=== PATIENT | male | born 1960 | race Caucasian/White ===

== ENCOUNTER 2017-11-07 06:20 | Day surgery (SDC) | payer OTHER ==
[~2017-11-07 06:20] MED LIST: Lactated Ringers 1,000 ML IV SCH; Sodium Chloride 0.9% 10 ML Syringe FLUSH PRN; Sodium Chloride 0.9% 2.5 ML Syringe FLUSH PRN; ceFAZolin 2 GM in Premix Bag 1 BAG IV ONE
[2017-11-07] MEDS ORDERED: Propofol 200 MG/20 ML SDV ONE (07:16)
[2017-11-07] MEDS ORDERED: fentaNYL 100 MCG/2 ML SDV ONE (07:16)
[2017-11-07] MEDS ORDERED: Midazolam 1 MG/ML 2 ML SDV ONE ×2 (07:16→07:57)
[2017-11-07] MEDS ORDERED: Lidocaine 2% 5 ML SDV ONE (07:18)
--- NOTE | 2017-11-07 07:19 | PCM.PREANE ---
Preanesthetic Assessment - Anesthesia/Transfusion/Family Hx Anesthesia History: Prior Anesthesia Without Reaction Family History of Anesthesia Reaction: No Transfusion History: No Prior Transfusion(s) Intubation History: Unknown - Review of Systems General: No Symptoms Pulmonary: No Symptoms Cardiovascular: No Symptoms Gastrointestinal: No Symptoms Neurological: No Symptoms Other: Reports: None - Physical Assessment O2 Sat by Pulse Oximetry: 96 Respiratory Rate: 16 Vital Signs: Last Vital Signs Temp 36.1 C 11/07/17 06:32 Pulse 60 11/07/17 06:32 Resp 16 11/07/17 06:32 BP 138/68 11/07/17 06:32 Pulse Ox 96 11/07/17 06:32 Height: 1.73 m Weight: 83.915 kg ASA Class: 2 Mental Status: Alert & Oriented x3 Airway Class: Mallampati = 2 Dentition: Reports: Normal Dentition Thyro-Mental Finger Breadths: 3 Mouth Opening Finger Breadths: 2 ROM/Head Extension: Full Lungs: Clear to Auscultation, Normal Respiratory Effort Cardiovascular: Regular Rate, Regular Rhythm - Allergies Allergies/Adverse Reactions: Allergies Allergy/AdvReac Type Severity Reaction Status Date / Time No Known Allergies Allergy Verified 06/15/14 15:14 - Blood Blood Available: No - Anesthesia Plan Pre-Op Medication Ordered: None - Acknowledgements Anesthesia Type Planned: MAC Pt an Appropriate Candidate for the Planned Anesthesia: Yes Alternatives and Risks of Anesthesia Discussed w Pt/Guardian: Yes Pt/Guardian Understands and Agrees with Anesthesia Plan: Yes PreAnesthesia Questionnaire HEENT History: Reports: Allergic Rhinitis Cardiovascular History: Reports: Hypertension Respiratory History: Reports: None Gastrointestinal History: Reports: GERD Genitourinary History: Reports: None Musculoskeletal History: Reports: Osteoarthritis Neurological History: Reports: Concussion Psychiatric History: Reports: None Hematologic History: Reports: None Immunologic History: Reports: None Oncologic (Cancer) History: Reports: None Dermatologic History: Reports: None - Past Surgical History Head Surgeries/Procedures: Reports: None HEENT Surgical History: Reports: LASIK, Naso-Sinus Surgery GI Surgical History: Reports: Colonoscopy Musculoskeletal Surgical History: Reports: Hip Replacement, Shoulder Surgery Other Musculoskeletal Surgeries/Procedures:: sudhakar hip replacement, left rotator cuff repair with bicep tendon repair - SUBSTANCE USE Smoking Status *Q: Never Smoker Recreational Drug Use History: No - HOME MEDS Home Medications: Home Meds Aspirin [[place] Aspirin] 81 mg PO DAILY 09/19/16 [History] Cetirizine [ZyrTEC] 10 mg PO DAILY PRN 09/19/16 [History] Famotidine [Pepcid AC] 20 mg PO DAILY PRN 09/19/16 [History] Gluc 2KCl/Chondr/Machelle Hy/Hy Ac [Glucosamine & Chondroitin Cap] 1 tab PO DAILY [History] Losartan Potassium 50 mg PO DAILY 11/05/17 [History] - CURRENT (IN HOUSE) MEDS Current Meds: Current Medications Lactated Ringer's (Ringers, Lactated) 1,000 mls @ 125 mls/hr IV ASDIRECTED DEAN Last Admin: 11/07/17 06:39 Dose: 125 mls/hr Sodium Chloride (Saline Flush) 10 ml FLUSH ASDIRECTED PRN PRN Reason: Keep Vein Open Sodium Chloride (Saline Flush) 2.5 ml FLUSH ASDIRECTED PRN PRN Reason: Keep Vein Open Discontinued Medications Cefazolin Sodium/Dextrose 2 gm (/ Premix) 50 mls @ 100 mls/hr IV ONETIME ONE Stop: 11/05/17 14:29
[2017-11-07] MEDS ORDERED: fentaNYL 100 MCG/2 ML SDV IVPUSH PRN (07:34)
[2017-11-07] MEDS ORDERED: ceFAZolin 1 GM Vial ONE (07:38)
[2017-11-07] MEDS ORDERED: Sodium Chloride 0.9% 20 ML ONE (07:40)
[2017-11-07] MEDS ORDERED: Lidocaine 1% with EPINEPHrine 1:100,000 20 ML MDV ONE (07:44)
[2017-11-07] MEDS ORDERED: Bupivacaine 0.5% 10 ML SDV ONE (07:44)
--- NOTE | 2017-11-07 08:36 | PCM.OPNOTE ---
- General Post-Op/Procedure Note Date of Surgery/Procedure: 11/07/17 Operative Procedure(s): Excision upper back sebaceous cyst Findings: 1 cm sebaceous cyst on upper back Pre Op Diagnosis: sebaceous cyst Post-Op Diagnosis: same Anesthesia Technique: HOANG Primary Surgeon: Nataliya Lobo Condition: Good
--- NOTE | 2017-11-07 08:41 | PCM48HPAN ---
Post Anesthesia Note - EVALUATION WITHIN 48HRS OF ANESTHETIC Vital Signs in Normal Range: Yes Patient Participated in Evaluation: Yes Respiratory Function Stable: Yes Airway Patent: Yes Cardiovascular Function Stable: Yes Hydration Status Stable: Yes Pain Control Satisfactory: Yes Nausea and Vomiting Control Satisfactory: Yes Mental Status Recovered: Yes - COMMENTS/OBSERVATIONS Free Text/Narrative:: no anesthesia problems, patient skipped recovery room of postoperative care
[2017-11-07 08:43] VITALS: BP 126/64
--- NOTE | 2017-11-07 21:33 | OR ---
SURGEON: ANA LILIA SAINZ MD DATE OF PROCEDURE: 11/07/2017 PREOPERATIVE DIAGNOSIS: Sebaceous cyst. POSTOPERATIVE DIAGNOSIS: Sebaceous cyst. PROCEDURE PERFORMED: Excision of upper back sebaceous cyst. ANESTHESIA: MAC. FLUIDS: See Anesthesia record. ESTIMATED BLOOD LOSS: 5 mL. FINDINGS: 1 cm sebaceous cyst along the upper back overlying the spinous processes. COMPLICATIONS: None. INDICATIONS: The patient is a 57-year-old male who presents with a mass on his upper back. This appeared to be a sebaceous cyst. Given its location, the decision was made to take him to the operating room for better hemostasis and closure. The patient and I discussed the procedure as well as the expected perioperative course. We discussed the risks including bleeding, infection, or damage to the surrounding structures. The patient verbalized understanding and wishes to proceed. PROCEDURE IN DETAIL: The patient was brought into the OR and placed in a right lateral decubitus position. A time-out was completed verifying the patient's name, age, date of , allergies, and procedure to be performed. Monitored anesthesia care was induced. The upper back was prepped and draped in the usual standard fashion. The area overlying the mass was anesthetized with 1% lidocaine with epinephrine. A horizontal incision was made over the apex of the mass. This measured approximately 3 cm in size. Cautery was used to dissect down to the level of the mass. A cyst was noted. Cautery and sharp dissection were used to dissect around the cyst and remove it from the surrounding tissues. This was placed in a container and sent to pathology labeled as sebaceous cyst. The wound was then irrigated and hemostasis achieved with cautery. The defect was then closed using interrupted 3-0 Vicryls in the subcutaneous fat layer and the skin was closed with a running 4-0 Monocryl stitch. Sterile dressings were applied. The patient was transferred to the PACU in stable condition. NAMRATA MOLINA /[id number]
== END 2017-11-07 09:08 | disposition home or self-care (01) ==
LOC: MW.SDS 06:20
PROVIDERS: ATTEND Surgery
DX: L72.0 Epidermal cyst (principal); M19.90 Unspecified osteoarthritis, unspecified site; I10 Essential (primary) hypertension; J30.2 Other seasonal allergic rhinitis; Z98.890 Other specified postprocedural states; Z79.82 Long term (current) use of aspirin; Z79.899 Other long term (current) drug therapy; Z96.649 Presence of unspecified artificial hip joint; Z87.891 Personal history of nicotine dependence
CPT/HCPCS: 11401; J0690; J2250; J3010; J7120; 00300; 88304; J2704

== ENCOUNTER 2019-11-15 10:19 | Day surgery (SDC) | payer OTHER ==
[~2019-11-15 10:19] MED LIST changes: +Bupivacaine 0.5% 30 ML SDV ONE; +Lidocaine 1% 20 ML MDV ONE; +Lidocaine 2% 5 ML SDV ONE; +Midazolam 1 MG/ML 2 ML SDV ONE; +Octyl 2-Cyanoacrylate 1 Tube ONE; +Propofol 200 MG/20 ML SDV ONE; +Sodium Chloride 0.9% 10 ML SDV IV PRN; +fentaNYL 100 MCG/2 ML SDV ONE
--- NOTE | 2019-11-15 11:15 | PCM.PREANE ---
Preanesthetic Assessment - Anesthesia/Transfusion/Family Hx Anesthesia History: Prior Anesthesia Without Reaction Family History of Anesthesia Reaction: No Transfusion History: No Prior Transfusion(s) Intubation History: Unknown - Review of Systems General: No Symptoms Pulmonary: No Symptoms Cardiovascular: No Symptoms Gastrointestinal: No Symptoms Neurological: No Symptoms Other: Reports: None - Physical Assessment Height: 5 ft 8 in Weight: 85.275 kg ASA Class: 2 Mental Status: Alert & Oriented x3 Airway Class: Mallampati = 1 Dentition: Reports: Normal Dentition (small chip front upper tooth) Thyro-Mental Finger Breadths: 3 Mouth Opening Finger Breadths: 3 ROM/Head Extension: Full Lungs: Clear to Auscultation, Normal Respiratory Effort Cardiovascular: Regular Rate, Regular Rhythm - Allergies Allergies/Adverse Reactions: Allergies Allergy/AdvReac Type Severity Reaction Status Date / Time No Known Allergies Allergy Verified 11/10/19 10:13 - Blood Blood Available: No - Anesthesia Plan Pre-Op Medication Ordered: None - Acknowledgements Anesthesia Type Planned: MAC Pt an Appropriate Candidate for the Planned Anesthesia: Yes Alternatives and Risks of Anesthesia Discussed w Pt/Guardian: Yes Pt/Guardian Understands and Agrees with Anesthesia Plan: Yes PreAnesthesia Questionnaire HEENT History: Reports: Allergic Rhinitis Cardiovascular History: Reports: Hypertension Respiratory History: Reports: None, Other (See Below) (h/o asthma) Gastrointestinal History: Reports: GERD Other Gastrointestinal History: h/o gastric ulcer Genitourinary History: Reports: None Musculoskeletal History: Reports: Osteoarthritis Neurological History: Reports: None Psychiatric History: Reports: None Endocrine/Metabolic History: Reports: None Hematologic History: Reports: None Immunologic History: Reports: None Oncologic (Cancer) History: Reports: None Dermatologic History: Reports: None - Past Surgical History Head Surgeries/Procedures: Reports: None HEENT Surgical History: Reports: LASIK, Naso-Sinus Surgery Respiratory Surgical History: Reports: None GI Surgical History: Reports: Colonoscopy Male Surgical History: Reports: None Endocrine Surgical History: Reports: None Neurological Surgical History: Reports: None Musculoskeletal Surgical History: Reports: Hip Replacement, Shoulder Surgery Other Musculoskeletal Surgeries/Procedures:: sudhakar hip replacement last one 2 years ago, left rotator cuff repair with bicep tendon repair Oncologic Surgical History: Reports: None Dermatological Surgical History: Reports: None - SUBSTANCE USE Smoking Status *Q: Never Smoker Tobacco Use Within Last Twelve Months: Snuff/Dip (quit chewing in ) Recreational Drug Use History: No - HOME MEDS Home Medications: Home Meds Aspirin [[place] Aspirin EC] 81 mg PO DAILY 09/19/16 [History] Cetirizine [ZyrTEC] 10 mg PO DAILY PRN 09/19/16 [History] Famotidine [Pepcid AC] 20 mg PO DAILY PRN 09/19/16 [History] Glucosam/Chondr/Collagn/Hyalur [Glucosamine & Chondroitin Cap] 1 tab PO DAILY [History] Losartan Potassium 50 mg PO DAILY 11/05/17 [History] - CURRENT (IN HOUSE) MEDS Current Meds: Current Medications Lactated Ringer's (Ringers, Lactated) 1,000 mls @ 125 mls/hr IV ASDIRECTED DEAN Sodium Chloride (Saline Flush) 10 ml FLUSH ASDIRECTED PRN PRN Reason: Keep Vein Open Sodium Chloride (Saline Flush) 2.5 ml FLUSH ASDIRECTED PRN PRN Reason: Keep Vein Open Sodium Chloride (Normal Saline) 10 ml IV ASDIRECTED PRN PRN Reason: IV Use Discontinued Medications Bupivacaine HCl (Marcaine 0.5%) Confirm Administered Dose 30 ml .ROUTE .STK-MED ONE Stop: 11/15/19 09:57 Fentanyl (Sublimaze) Confirm Administered Dose 100 mcg .ROUTE .STK-MED ONE Stop: 11/15/19 08:40 Cefazolin Sodium/Dextrose 2 gm (/ Premix) 50 mls @ 100 mls/hr IV ONETIME ONE Stop: 11/12/19 14:14 Lidocaine (Xylocaine-Mpf 2%) Confirm Administered Dose 5 ml .ROUTE .STK-MED ONE Stop: 11/15/19 08:40 Lidocaine HCl (Xylocaine 1%) Confirm Administered Dose 20 ml .ROUTE .STK-MED ONE Stop: 11/15/19 09:57 Midazolam HCl (Versed 1 Mg/Ml) Confirm Administered Dose 2 mg .ROUTE .STK-MED ONE Stop: 11/15/19 08:40 Octyl Cyanoacrylate (Dermabond Advance) Confirm Administered Dose 1 applic .ROUTE .STK-MED ONE Stop: 11/15/19 09:57 Propofol (Diprivan 20 Ml) Confirm Administered Dose 400 mg .ROUTE .STK-MED ONE Stop: 11/15/19 08:40
[2019-11-15] MEDS ORDERED: Glycopyrrolate 0.2 MG/ML SDV ONE (12:21)
--- NOTE | 2019-11-15 13:13 | PCM.POSTAN ---
POST ANESTHESIA ASSESSMENT - MENTAL STATUS Mental Status: Alert, Oriented - VITAL SIGNS Vital Signs: Last Vital Signs Temp Pulse 69 11/15/19 13:07 Resp 14 11/15/19 13:07 BP 104/60 11/15/19 13:07 Pulse Ox 93 L 11/15/19 13:07 - RESPIRATORY Respiratory Status: Respiratory Rate WNL, Airway Patent, O2 Saturation Stable - CARDIOVASCULAR CV Status: Pulse Rate WNL, Blood Pressure Stable - GASTROINTESTINAL GI Status: No Symptoms - PAIN Pain Score: 0 - POST OP HYDRATION Hydration Status: Adequate & Stable - OBSERVATIONS Free Text/Narrative:: no anesthesia problems
--- NOTE | 2019-11-15 13:51 | PCM48HPAN ---
Post Anesthesia Note - EVALUATION WITHIN 48HRS OF ANESTHETIC Vital Signs in Normal Range: Yes Patient Participated in Evaluation: Yes Respiratory Function Stable: Yes Airway Patent: Yes Cardiovascular Function Stable: Yes Hydration Status Stable: Yes Pain Control Satisfactory: Yes Nausea and Vomiting Control Satisfactory: Yes Mental Status Recovered: Yes Vital Signs: Last Vital Signs Temp Pulse 69 11/15/19 13:07 Resp 14 11/15/19 13:07 BP 104/60 11/15/19 13:07 Pulse Ox 93 L 11/15/19 13:07 - COMMENTS/OBSERVATIONS Free Text/Narrative:: No anesthesia problems
--- NOTE | 2019-11-15 14:44 | PCM.OPNOTE ---
- General Post-Op/Procedure Note Date of Surgery/Procedure: 11/15/19 Operative Procedure(s): Excision neck skin lesion, upper back cyst Findings: 1.5 x 0.5 x 0.2 cm posterior neck skin lesion excision, 2 x 1 x 1.2 cm upper back cyst Pre Op Diagnosis: Neck skin lesion, back cyst Post-Op Diagnosis: same Anesthesia Technique: MAC Primary Surgeon: Nataliya Lobo Fluid Replacement, Intraop: 900 EBL in mLs: 5 Condition: Good Free Text/Narrative:: Intake & Output 11/14/19 11/15/19 11/15/19 22:59 06:59 14:59 Intake Total 1000 Balance 1000
[2019-11-15 15:28] VITALS: BP 110/67; PULSE 65
--- NOTE | 2019-11-16 12:34 | OR ---
SURGEON: NATALIYA LOBO MD DATE OF PROCEDURE: 11/15/2019 PREOPERATIVE DIAGNOSES: 1. Posterior neck skin lesion. 2. Upper back cyst. POSTOPERATIVE DIAGNOSES: 1. Posterior neck skin lesion. 2. Upper back cyst. PROCEDURES PERFORMED: 1. Excision of posterior neck skin lesion. 2. Excision of upper back cyst. PRIMARY SURGEON: Nataliya Lobo MD. ANESTHESIA: MAC, local. FLUIDS: 900 mL of crystalloid. ESTIMATED BLOOD LOSS: 5 mL. FINDINGS: Posterior neck lesion 1.5 x 0.5 x 0.2 cm, upper back mass 2 x 1 x 1.2 cm. COMPLICATIONS: None. INDICATIONS: The patient is a 59-year-old male who presents with a recurrent upper back cyst as well as a changing posterior neck skin lesion. I explained the need for excision of these. I explained the procedures; expected perioperative course; and risks including bleeding, infection, or damage to surrounding structures. He verbalized understanding and wishes to proceed. PROCEDURE IN DETAIL: The patient was brought into the OR and placed on the OR table in a left lateral decubitus position. A time-out was completed verifying the patient's name, age, date of , allergies, and procedure to be performed. Monitored anesthesia care was induced. The posterior neck and upper back were prepped and draped in the usual standard fashion. I anesthetized the area underneath the posterior neck skin lesion and the upper back cyst with a 1:1 mixture of 0.5% Marcaine plain and 1% lidocaine plain. I first turned my attention to the posterior neck skin lesion. An elliptical incision was made around this using a 15 blade. Cautery was then used to dissect down to layer of the subcutaneous fat. I undermined the lesion and removed it from the field. It was placed on the back table and measured. It measured 1.5 x 0.5 x 0.2 cm in size. It was sent to pathology, labeled as posterior neck lesion. The neck wound was then inspected. Hemostasis was achieved with electrocautery. The wound was then closed with interrupted 3-0 Ethilon sutures. I then turned my attention to the upper back cyst. A 15 blade was used to make an elliptical incision around the cyst and previous scar. Cautery was used to dissect down to the level of subcutaneous fat. The wound was then elevated and undermined using cautery. The lesion was then placed on the back table and measured. It measured 2 x 1 x 1.2 cm in size. It was labeled as upper back mass and sent to pathology. The wound was inspected and hemostasis was achieved with electrocautery. The wound was then closed with interrupted 3-0 Ethilon sutures as well as one horizontal mattress stitch to provide a tension-free repair. Prior to this, several interrupted 3-0 Vicryl sutures were placed in the subcutaneous fat layer to close that as well. Sterile dressings were applied to both lesions. The patient tolerated the procedure well and was taken to the PACU in stable condition. NAMRATA MOLINA /[id number]
== END 2019-11-15 13:50 | disposition home or self-care (01) ==
LOC: MW.SDS 10:19
PROVIDERS: ATTEND Surgery
DX: D23.4 Other benign neoplasm of skin of scalp and neck (principal); L72.0 Epidermal cyst; I10 Essential (primary) hypertension; J45.909 Unspecified asthma, uncomplicated; M19.90 Unspecified osteoarthritis, unspecified site; Z79.82 Long term (current) use of aspirin; Z79.899 Other long term (current) drug therapy
CPT/HCPCS: 11402; 11422; 12031; 12041; 88304; 88305; J2001; J2250; J2704; J3010; J3490; J7120; 00300; A9270-GY